=== PATIENT | male | born 1965 | race Caucasian/White ===

== ENCOUNTER 2023-04-05 08:25 | Outpatient (CLI) | payer OTHER, SELFPAY | END 2023-04-05 08:26 | disposition home or self-care (01) | PROVIDERS: PCP Nurse Practitioner Family; Visit Provider Nurse Practitioner Family | DX: Z00.00 Encounter for general adult medical examination without abnormal findings (principal); Z13.6 Encounter for screening for cardiovascular disorders; Z12.5 Encounter for screening for malignant neoplasm of prostate | CPT/HCPCS: 80053; 80061; 84153 ==

== ENCOUNTER 2023-07-24 10:19 | Outpatient (CLI) | payer OTHER, SELFPAY | END 2023-07-24 10:20 | disposition home or self-care (01) | PROVIDERS: PCP Nurse Practitioner Family; Visit Provider Family Medicine | DX: Z01.818 Encounter for other preprocedural examination (principal) | CPT/HCPCS: 80048 ==

== ENCOUNTER 2023-10-30 08:02 | Outpatient (CLI) | payer OTHER, SELFPAY | END 2023-10-30 08:03 | disposition home or self-care (01) | LOC: NFLDREF 11-02 18:45 | PROVIDERS: PCP Nurse Practitioner Family; Referring Provider Nurse Practitioner Family; Visit Provider Nurse Practitioner Family | DX: E29.1 Testicular hypofunction (principal) | CPT/HCPCS: 84403 ==

== ENCOUNTER 2024-08-08 08:09 | Outpatient (CLI) | payer OTHER, SELFPAY | END 2024-08-08 08:10 | disposition home or self-care (01) | LOC: NFLDREF 08-09 03:37 | PROVIDERS: PCP Nurse Practitioner Family; Referring Provider Nurse Practitioner Family; Visit Provider Nurse Practitioner Family | DX: E29.1 Testicular hypofunction (principal); R03.0 Elevated blood-pressure reading, without diagnosis of hypertension; E03.9 Hypothyroidism, unspecified; R79.89 Other specified abnormal findings of blood chemistry; Z12.5 Encounter for screening for malignant neoplasm of prostate; Z13.6 Encounter for screening for cardiovascular disorders | CPT/HCPCS: 80053; 80061; 84270; 84402; 84403; G0103 ==

== ENCOUNTER 2024-09-18 12:43 | Outpatient (CLI) | payer OTHER, SELFPAY ==
--- NOTE | 2024-09-18 13:00 | CRLHL7_ITS ---
For Patients: As a result of the Century Cures Act, medical imaging exams and procedure reports are released immediately into your electronic medical record. You may view this report before your referring provider. If you have questions, please contact your health care provider. INDICATION: Screening for AAA (abdominal aortic aneurysm. History of smoking and poorly hypertension TECHNIQUE: Ultrasound aorta with color Doppler analysis. COMPARISON: None FINDINGS: The proximal abdominal aorta measures 2.5 x 2.6 cm, mid aorta measures 2.4 x 2.5 cm, distal aorta measures 1.9 x 1.8 cm, right common iliac artery measures 1.6 x 1.3 cm, and the left common iliac artery measures 1.4 x 1.2 cm. Mild to moderate atherosclerotic plaque throughout the visualized aorta. There are no periaortic abnormalities evident. Patent bilateral renal arteries. IMPRESSION: No abdominal aortic aneurysm. 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 Dictated by Brenda Strange MD @ 09/19/2024 4:08:54 PM (Electronically Signed)
--- NOTE | 2024-09-18 13:45 | CRLHL7_ITS ---
For Patients: As a result of the Century Cures Act, medical imaging exams and procedure reports are released immediately into your electronic medical record. You may view this report before your referring provider. If you have questions, please contact your health care provider. Indication: Headache. Technique: [id number] MRA images of the head. Axial diffusion imaging of the brain. Comparison: None. Findings: The internal carotid, middle cerebral, and anterior cerebral arteries are widely patent. The vertebral, basilar, and posterior cerebral arteries are widely patent. origin left posterior cerebral artery. No intracranial aneurysm or high-flow vascular malformation. No diffusion restriction to suggest acute infarction. Impression: 1. Unremarkable MRA of the head. 2. No acute infarction. Dictated by Arnel Parra MD @ 09/18/2024 4:15:33 PM (Electronically Signed)
== END 2024-09-18 12:44 | disposition home or self-care (01) ==
PROVIDERS: PCP Nurse Practitioner Family; Visit Provider Nurse Practitioner Family
DX: R51.9 Headache, unspecified (principal); Z13.6 Encounter for screening for cardiovascular disorders; I10 Essential (primary) hypertension
CPT/HCPCS: 70544; 76706

== ENCOUNTER 2024-11-03 15:34 | Outpatient (CLI) | payer OTHER, SELFPAY ==
--- NOTE | 2024-11-03 16:00 | CRLHL7_ITS ---
For Patients: As a result of the Century Cures Act, medical imaging exams and procedure reports are released immediately into your electronic medical record. You may view this report before your referring provider. If you have questions, please contact your health care provider. Indication: DIAPHRAGMATIC HERNIA W/O OBSTRUCTION Technique: Noncontrast CT chest Please note that all CT scans at this facility use dose modulation, iterative reconstruction, and/or weight-based dosing when appropriate to reduce radiation dose to as low as reasonably achievable. Comparison: None Findings: The visualized thyroid is within normal limits. No enlarged lymph nodes are present. There is no adrenal nodule. The spleen is normal in size. Unremarkable visualized pancreas. No calcified stone within the visualized gallbladder. Mild atherosclerotic changes are present in the aorta. Calcifications in the coronary arteries are present. No vertebral body compression fracture. No suspicious osseous lesion. The diaphragm appears intact without Bochdalek`s or hiatal hernia. No suspicious pulmonary nodule. No infiltrate or edema. No effusion or pneumothorax. No pulmonary fibrosis. Impression: No acute cardiopulmonary disease. Intact diaphragm. Coronary artery atherosclerotic disease. Please note that all CT scans at this facility use dose modulation, iterative reconstruction, and/or weight-based dosing when appropriate to reduce radiation dose to as low as reasonably achievable. Dictated by Gustavo Bruno MD @ 11/04/2024 11:51:20 AM (Electronically Signed)
== END 2024-11-03 15:35 | disposition home or self-care (01) ==
LOC: CT 15:35
PROVIDERS: PCP Nurse Practitioner Family; Visit Provider Physician Assistant Medical
DX: K44.9 Diaphragmatic hernia without obstruction or gangrene (principal); I25.10 Atherosclerotic heart disease of native coronary artery without angina pectoris
CPT/HCPCS: 71250